=== PATIENT | female | born 1980 ===

== ENCOUNTER 2017-02-05 23:55 | Emergency (ER) | payer SELFPAY ==
[2017-02-06 00:20] VITALS: BP 127/75; PULSE 66; RESP 17; TEMP 97.9; O2SAT 98
[2017-02-06] MEDS ORDERED: Sodium Chloride 0.9% 1,000 ML IV STA (00:43)
--- NOTE | 2017-02-06 00:58 | ED PDOC ---
HPI: General Adult Chief Complaint (Provider): numbness L/hand History Per: Patient History/Exam Limitations: no limitations Onset/Duration Of Symptoms: Days Have you had recent travel within the past 21 days to any of the following countries: [place], [place], [place] or [place]?: No Current Symptoms Are (Timing): Still Present Pain Scale Rating Of: 0 Location Of Discomfort (Image): 1 - discomfort/no pain/pressure sensation 2 - numbness 4,5 fingers and 1/2 3rd.(Ulnar distribution) Recent Trauma: no <Arsen Naidu - Last Filed: 02/06/17 01:31> <Jaquan De La Cruz - Last Filed: 02/12/17 06:15> Time Seen by Provider: 02/06/17 00:24 Chief Complaint (Nursing): Weakness/Neurological Deficit Additional Complaint(s): 36 y/o F with Hx of obesity presents to ED because of L/ posterior arm discomfort and numbness in the 1/2 ring finger, 4 and 5 finger for the past 2 days. She denies pain, weakness, neck pain, redness, fever. She also states that until yesterday and for the previous 2 days she had numbness in the L/leg also that improved while standing or walking and presented every time that she was sitting or laying down. Admits palpitations and dizziness yesterday that resolved spontaneously, but denies SOB, CP. Also denies trauma, domestic violence, drugs or ETOH. Admits being under stress recently but denies feeling anxious or depressed. (Arsen Naidu) Supervising Attending Note - Supervising Attending Note The Documented history was done by the: Physician Regional Sales Leader, Attending Physician The documented physical exam was done by the: Physician Regional Sales Leader, Attending Physician The documented procedures were done by the: Physician Regional Sales Leader, Attending Physician - Attestation: I have personally seen and examined this patient.: Yes I have fully participated in the care of the patient.: Yes I have reviewed all pertinent clinical information, including history, physical exam and plan: Yes <Jaquan De La Cruz - Last Filed: 02/12/17 06:15> Past Medical History - Medical History Other PMH: GDM - Surgical History Surgical History: Appendectomy, - Family History Family History: States: Diabetes - Living Arrangements Living Arrangements: With Family - Social History Current smoker - smoking cessation education provided: No Ex-Smoker (has not smoked in the last 12 months): No Alcohol: Occasional Drugs: Denies <Arsen Naidu - Last Filed: 02/06/17 01:31> <Jaquan De La Cruz - Last Filed: 02/12/17 06:15> Vital Signs: Last Vital Signs Temp 97.9 F 02/06/17 00:17 Pulse 66 02/06/17 00:17 Resp 17 02/06/17 00:17 BP 127/75 02/06/17 00:17 Pulse Ox 98 02/06/17 01:36 - Home Medications Home Medications: Ambulatory Orders Medication Instructions Recorded No Known Home Med 02/06/17 - Allergies Allergies/Adverse Reactions: Allergies Allergy/AdvReac Type Severity Reaction Status Date / Time No Known Allergies Allergy Verified 02/06/17 01:05 Review of Systems ROS Statement: Except As Marked, All Systems Reviewed And Found Negative Constitutional: Negative for: Fever, Weakness Eyes: Negative for: Vision Change ENT: Negative for: Throat Pain Cardiovascular: Positive for: Palpitations (Yesterday). Negative for: Chest Pain, Edema, Light Headedness Respiratory: Negative for: Cough, Shortness of Breath Gastrointestinal: Negative for: Nausea, Vomiting, Abdominal Pain Musculoskeletal: Negative for: Neck Pain, Shoulder Pain, Back Pain, Hand Pain Skin: Negative for: Rash Neurological: Positive for: Numbness (as per HPI). Negative for: Weakness Psych: Negative for: Anxiety, Depression <Arsen Naidu - Last Filed: 02/06/17 01:31> Physical Exam - Reviewed Vital Signs Reviewed: Yes - Physical Exam Appears: Positive for: Non-toxic, Uncomfortable (Anxious) Head Exam: Positive for: ATRAUMATIC, NORMAL INSPECTION Skin: Positive for: Normal Color, Warm Eye Exam: Positive for: PERRL. Negative for: Conjunctival injection Neck: Positive for: Normal, Painless ROM, Supple Cardiovascular/Chest: Positive for: Regular Rate, Rhythm. Negative for: Murmur Respiratory: Positive for: Normal Breath Sounds. Negative for: Rales, Wheezing Gastrointestinal/Abdominal: Positive for: Soft. Negative for: Tenderness Extremity: Positive for: Normal ROM, Other (strenght intact in all ext). Negative for: Tenderness DTR - Bicep (R): 2+ DTR - Bicep (L): 2+ DTR - Tricep (R): 2+ DTR - Tricep (L): 2+ Neurologic/Psych: Positive for: Alert, Oriented, Other (Anxious). Negative for : Motor/Sensory Deficits, Mood/Affect, Aphasia <Arsen Naidu - Last Filed: 02/06/17 01:31> - Laboratory Results Result Diagrams: 02/06/17 00:50 02/06/17 00:46 - ECG O2 Sat by Pulse Oximetry: 98 <Arsen Naidu - Last Filed: 02/06/17 01:31> - Laboratory Results Result Diagrams: 02/06/17 00:50 02/06/17 00:46 <Jaquan De La Cruz - Last Filed: 02/12/17 06:15> Disposition <Arsen Naidu - Last Filed: 02/06/17 01:31> - Patient ED Disposition Is Patient to be Admitted: No - Disposition Disposition: Routine/Home Disposition Time: :31 <Jaquan De La Cruz - Last Filed: 02/12/17 06:15> - Clinical Impression Clinical Impression: Paresthesia - Disposition Condition: STABLE Instructions: Paresthesia (ED) Print Language: CITIZEN OF [place]
[2017-02-06 01:05] LABS: BASO # 0.1 K/uL (0.0-0.2); BASO % 0.9 % (0.0-2.0); EOS # 0.5 K/uL (0.0-0.7); EOS % 5.8 % (0.0-4.0); HEMATOCRIT 38.1 % (34.0-47.0); LYMPH # 2.8 K/uL (1.0-4.3); LYMPH % 32.4 % (20.0-40.0); MEAN CELL VOLUME 89.2 fl (81.0-99.0); MEAN CORPUSCULAR HEMOGLOBIN 28.8 pg (27.0-31.0); MEAN CORPUSCULAR HGB CONC 32.3 g/dL (33.0-37.0); MEAN PLATELET VOLUME 10.5 fl (7.2-11.7); MONO # 0.8 K/uL (0.0-0.8); MONO % 8.6 % (0.0-10.0); NEUT # 4.6 K/uL (1.8-7.0); NEUT % 52.3 % (50.0-75.0); NRBC % 0.1 % (0.0-0.0); RED CELL DISTRIBUTION WIDTH 13.8 % (11.5-14.5); WHITE BLOOD COUNT 8.8 K/uL (4.8-10.8)
[2017-02-06 01:15] LABS: ALB/GLOB RATIO 1.1 (1.0-2.1); ALKALINE PHOSPHATASE 65 U/L (38-126); ALT/SGPT 34 U/L (9-52); AST/SGOT 22 U/L (14-36); BILIRUBIN,TOTAL 0.5 mg/dl (0.2-1.3); BLOOD UREA NITROGEN 19 mg/dl (7-17); CALCIUM 8.9 mg/dL (8.4-10.2); CARBON DIOXIDE 23 mmol/L (22-30); CHLORIDE 107 mmol/L (98-107); GFR AFRICAN-AMERICAN > 60; GLUCOSE,RANDOM 111 mg/dL (65-105); POTASSIUM 4.1 MMOL/L (3.6-5.0); SODIUM 143 mmol/l (132-148); TOTAL PROTEIN 7.7 G/DL (6.3-8.2)
[2017-02-06 01:31] LABS: RBC URINE 4 /hpf (0-3); URINE BILIRUBIN NEGATIVE (NEGATIVE); URINE BLOOD SMALL (NEGATIVE); URINE COLOR YELLOW (YELLOW); URINE GLUCOSE (UA) NEG (Normal); URINE KETONE NEGATIVE (NEGATIVE); URINE LEUKOCYTE ESTERASE NEG Leu/uL (Negative); URINE PROTEIN NEGATIVE (NEGATIVE); URINE UROBILINOGEN 0.2-1.0 mg/dL (0.2-1.0); WBC URINE 3 /hpf (0-5)
[2017-02-06 01:47] LABS: THYROID STIMULATING HORMONE 0.96 mIU/ML (0.46-4.68)
--- NOTE | 2017-02-06 12:27 | RAD ---
PROCEDURE: Left humerus HISTORY: Right upper extremity Pain. No history of recent/ related trauma provided COMPARISON: None TECHNIQUE: Standard protocol for this study/examination. FINDINGS: No significant/acute osseous, articular or soft tissue abnormalities. IMPRESSION: No significant or acute findings to account for/ related to the clinical presentation.
--- NOTE | 2017-02-06 20:27 | CARD ---
APPROVED REPORT EKG Measurement Heart [id number] <Conclusion> Normal sinus rhythm Normal ECG
== END 2017-02-06 04:56 | disposition home or self-care (01) ==
LOC: H.ER 23:55
DX: M79.601 Pain in right arm (principal); R20.0 Anesthesia of skin
CPT/HCPCS: 73060; 80053; 81003; 81025; 82550; 82948; 84443; 85025; 93005; 96360; 99283; G0480; J7040